=== PATIENT | female | born 1970 | race Two or more races ===

== ENCOUNTER → 2017-10-15 | Outpatient (CLI) | payer OTHER ==
[2017-10-15 07:21] LABS: microscopic required? NO
[2017-10-15 07:32] LABS: BASOPHIL % 0.3 % (0-2); PLATELET COUNT 141 x10^3mcL (130-400); RED CELL DISTRIBUTION WIDTH 13.5 % (11.5-14.5)
[2017-10-15 07:48] LABS: ALBUMIN 3.8 g/dL (3.4-5.0); ALKALINE PHOSPHATASE 68 U/L (46-116); ALT/SGPT 36 U/L (14-59); AST/SGOT 21 U/L (15-37); BILIRUBIN DIRECT 0.17 mg/dL (0.0-0.2); CALCIUM 8.8 mg/dL (8.5-10.1); CHLORIDE SERUM 104 mmol/L (98-107); CREATININE SERUM 0.7 mg/dL (0.6-1.0); FREE T4 1.19 ng/dL (0.76-1.46); GFR1 > 60 mL/min; GLUCOSE SERUM 82 mg/dL (74-106); HDL CHOLESTEROL 44 mg/dL (40-60); POTASSIUM SERUM 3.7 mmol/L (3.5-5.1); SODIUM SERUM 141 mmol/L (136-145); TOTAL PROTEIN, SERUM 7.5 g/dL (6.4-8.2); TRIGLYCERIDES 82 mg/dL (<150)
[2017-10-15 07:49] LABS: CHOLESTEROL 118 mg/dL (<200); CHOLESTEROL/HDL RATIO 2.7
[2017-10-15 09:12] LABS: UA SPECIFIC GRAVITY 1.015 (1.005-1.035); urine erythrocyte NEGATIVE (NEGATIVE)
== END | disposition home or self-care (01) ==
LOC: US 07:01 → LB 07:01
PROVIDERS: Internal Medicine
PROC: BW40ZZZ Ultrasonography of Abdomen (ICD-10-PCS; principal; 2017-10-15)
DX: Z00.00 Encounter for general adult medical examination without abnormal findings (principal); R10.11 Right upper quadrant pain
CPT/HCPCS: 84439

== ENCOUNTER → 2017-11-03 | Outpatient (CLI) | payer OTHER | END | disposition home or self-care (01) | LOC: CT 17:40 | PROC: BW20ZZZ Computerized Tomography (CT Scan) of Abdomen (ICD-10-PCS; principal; 2017-11-03) | DX: R10.9 Unspecified abdominal pain (principal); R16.0 Hepatomegaly, not elsewhere classified ==

== ENCOUNTER → 2017-12-12 | Outpatient (CLI) | payer OTHER | END | disposition home or self-care (01) | LOC: LB 15:14 | DX: R16.0 Hepatomegaly, not elsewhere classified (principal) ==

== ENCOUNTER → 2018-03-07 | Outpatient (CLI) | payer OTHER ==
[2018-03-07 15:20] LABS: BASOPHIL % 0.3 % (0-2); PLATELET COUNT 142 x10^3mcL (130-400)
[2018-03-07 15:33] LABS: ALBUMIN 3.7 g/dL (3.4-5.0); ALKALINE PHOSPHATASE 65 U/L (46-116); ALT/SGPT 31 U/L (14-59); AST/SGOT 20 U/L (15-37); BILIRUBIN TOTAL 0.4 mg/dL (0.20-1.00); CALCIUM 8.7 mg/dL (8.5-10.1); CARBON DIOXIDE 27.5 mmol/L (21-32); CHLORIDE SERUM 107 mmol/L (98-107); CREATININE SERUM 0.6 mg/dL (0.6-1.0); GFR1 > 60 mL/min; GLUCOSE SERUM 98 mg/dL (74-106); POTASSIUM SERUM 3.8 mmol/L (3.5-5.1); SODIUM SERUM 141 mmol/L (136-145); TOTAL PROTEIN, SERUM 7.3 g/dL (6.4-8.2)
[2018-03-10 14:29] LABS: VON WILLEBRAND FACTOR (vWG) AG 97 % (50-200)
== END | disposition home or self-care (01) ==
LOC: LB 14:37
PROVIDERS: Internal Medicine
DX: D68.0 Von Willebrand disease (principal)
CPT/HCPCS: 85246

== ENCOUNTER → 2018-05-26 | Outpatient (CLI) | payer OTHER ==
[2018-05-26 16:16] LABS: ALBUMIN 4.3 g/dL (3.4-5.0); ALKALINE PHOSPHATASE 75 U/L (46-116); ALT/SGPT 55 U/L (14-59); AST/SGOT 33 U/L (15-37); BILIRUBIN TOTAL 0.52 mg/dL (0.20-1.00); CALCIUM 8.9 mg/dL (8.5-10.1); CARBON DIOXIDE 31.3 mmol/L (21-32); CHLORIDE SERUM 103 mmol/L (98-107); CHOLESTEROL 167 mg/dL (<200); CHOLESTEROL/HDL RATIO 3.2; CREATININE SERUM 0.6 mg/dL (0.6-1.0); GFR1 > 60 mL/min; GLUCOSE SERUM 89 mg/dL (74-106); HDL CHOLESTEROL 52 mg/dL (40-60); POTASSIUM SERUM 3.9 mmol/L (3.5-5.1); SODIUM SERUM 140 mmol/L (136-145); TOTAL PROTEIN, SERUM 8.5 g/dL (6.4-8.2); TRIGLYCERIDES 112 mg/dL (<150)
[2018-05-26 16:19] LABS: UA SPECIFIC GRAVITY <=1.005 (1.005-1.035); microscopic required? YES; urine erythrocyte NEGATIVE (NEGATIVE)
== END | disposition home or self-care (01) ==
LOC: LB 15:25
PROVIDERS: Internal Medicine
DX: Z00.00 Encounter for general adult medical examination without abnormal findings (principal)

== ENCOUNTER → 2018-06-03 | Outpatient (CLI) | payer OTHER | END | disposition home or self-care (01) | LOC: MA 06-01 15:00 → US 06-01 16:00 | PROC: BH02ZZZ Plain Radiography of Bilateral Breasts (ICD-10-PCS; principal; 2018-06-03) | PROC: BW40ZZZ Ultrasonography of Abdomen (ICD-10-PCS; 2018-06-03) | DX: M76.62 Achilles tendinitis, left leg (principal); R10.9 Unspecified abdominal pain; Z12.31 Encounter for screening mammogram for malignant neoplasm of breast | CPT/HCPCS: 77067 ==

== ENCOUNTER → 2018-06-28 | Outpatient (CLI) | payer OTHER | END | disposition home or self-care (01) | LOC: LB 14:07 | DX: D68.0 Von Willebrand disease (principal) | CPT/HCPCS: 85246 ==

== ENCOUNTER → 2018-09-05 | Outpatient (CLI) | payer OTHER ==
[2018-09-05 09:30] LABS: BASOPHIL % 0.4 % (0-2); PLATELET COUNT 142 x10^3mcL (130-400); RED CELL DISTRIBUTION WIDTH 12.9 % (11.5-14.5)
[2018-09-05 09:57] LABS: ALBUMIN 3.8 g/dL (3.4-5.0); ALKALINE PHOSPHATASE 74 U/L (46-116); ALT/SGPT 36 U/L (14-59); AST/SGOT 18 U/L (15-37); BILIRUBIN TOTAL 0.7 mg/dL (0.20-1.00); C REACTIVE PROTEIN 0.3 mg/dL (<=0.9); CALCIUM 9.1 mg/dL (8.5-10.1); CARBON DIOXIDE 28.3 mmol/L (21-32); CHLORIDE SERUM 106 mmol/L (98-107); CREATININE SERUM 0.6 mg/dL (0.6-1.0); GFR1 > 60 mL/min; GLUCOSE SERUM 79 mg/dL (74-106); MAGNESIUM 1.9 mg/dL (1.8-2.4); POTASSIUM SERUM 4.3 mmol/L (3.5-5.1); SODIUM SERUM 141 mmol/L (136-145); TOTAL PROTEIN, SERUM 7.7 g/dL (6.4-8.2)
[2018-09-05 10:31] LABS: ERYTHROCYTE SED RATE 13 mm/hr (0-20)
[2018-09-06 09:19] LABS: RHEUMATOID ARTHRITIS FACTOR <10.0 IU/mL (0.0-13.9)
== END | disposition home or self-care (01) ==
LOC: LB 08:23
DX: D68.0 Von Willebrand disease (principal); M06.9 Rheumatoid arthritis, unspecified; M79.7 Fibromyalgia
CPT/HCPCS: 82784; 83516; 86200; 86255; 86431

== ENCOUNTER → 2018-10-23 | Outpatient (CLI) | payer OTHER ==
[2018-10-23 17:06] LABS: C REACTIVE PROTEIN 0.3 mg/dL (<=0.9); CALCIUM 8.6 mg/dL (8.5-10.1); FREE T4 1.01 ng/dL (0.76-1.46)
== END | disposition home or self-care (01) ==
LOC: RD 16:14
PROVIDERS: Family Medicine
DX: G95.9 Disease of spinal cord, unspecified (principal); R41.3 Other amnesia
CPT/HCPCS: 84425; 84439

== ENCOUNTER → 2019-04-17 | Outpatient (CLI) | payer OTHER ==
[2019-04-17 09:44] LABS: BASOPHIL % 0.3 % (0-2); PLATELET COUNT 143 x10^3mcL (130-400); RED CELL DISTRIBUTION WIDTH 12.8 % (11.5-14.5)
[2019-04-17 09:57] LABS: ALBUMIN 3.7 g/dL (3.4-5.0); ALKALINE PHOSPHATASE 77 U/L (46-116); ALT/SGPT 29 U/L (14-59); AST/SGOT 16 U/L (15-37); BILIRUBIN DIRECT 0.16 mg/dL (0.0-0.2); CALCIUM 8.7 mg/dL (8.5-10.1); CARBON DIOXIDE 28.9 mmol/L (21-32); CHLORIDE SERUM 108 mmol/L (98-107); CHOLESTEROL 160 mg/dL (<200); CREATININE SERUM 0.6 mg/dL (0.6-1.0); FREE T4 1.15 ng/dL (0.76-1.46); GFR1 > 60 mL/min; GLUCOSE SERUM 86 mg/dL (74-106); HDL CHOLESTEROL 53 mg/dL (40-60); POTASSIUM SERUM 4.3 mmol/L (3.5-5.1); SODIUM SERUM 143 mmol/L (136-145); TOTAL PROTEIN, SERUM 7.6 g/dL (6.4-8.2); TRIGLYCERIDES 104 mg/dL (<150)
== END | disposition home or self-care (01) ==
LOC: LB 08:42
PROVIDERS: Internal Medicine
DX: Z00.00 Encounter for general adult medical examination without abnormal findings (principal)
CPT/HCPCS: 84439

== ENCOUNTER 2019-10-26 17:21 | Emergency (ER) | payer OTHER, SELFPAY ==
[~2019-10-26] VITALS: Ht 157.5 cm; Wt 72.1 kg
[2019-10-26 17:50] VITALS: Ht 157.5 cm; Wt 72.1 kg
[2019-10-26 18:46] LABS: BASOPHIL % 0.3 % (0-2); PLATELET COUNT 143 x10^3mcL (130-400); RED CELL DISTRIBUTION WIDTH 12.9 % (11.5-14.5)
[2019-10-26 18:48] LABS: CALCIUM 8.8 mg/dL (8.5-10.1); CARBON DIOXIDE 27.1 mmol/L (21-32); CHLORIDE SERUM 103 mmol/L (98-107); CREATININE SERUM 0.6 mg/dL (0.6-1.0); GFR1 > 60 mL/min; GLUCOSE SERUM 83 mg/dL (74-106); POTASSIUM SERUM 3.6 mmol/L (3.5-5.1); SODIUM SERUM 140 mmol/L (136-145)
[2019-10-26 18:52] LABS: ALBUMIN 3.8 g/dL (3.4-5.0); ALKALINE PHOSPHATASE 68 U/L (46-116); ALT/SGPT 30 U/L (14-59); AST/SGOT 21 U/L (15-37); BILIRUBIN TOTAL 0.5 mg/dL (0.20-1.00); TOTAL PROTEIN, SERUM 7.4 g/dL (6.4-8.2)
[2019-10-26 20:23] LABS: microscopic required? NO
[2019-10-26 20:39] LABS: urine erythrocyte NEGATIVE (NEGATIVE)
[2019-10-26 21:11] LABS: FREE T4 0.99 ng/dL (0.76-1.46); FREE THYROXINE INDEX 2.6 ug/dL (1.4-4.5); T4(THYROXINE) 7.5 ug/dL (4.7-13.3)
[2019-10-26 21:36] VITALS: BP 117/63
[2019-10-26 22:35] LABS: T3 TOTAL 0.97 ng/mL
== END 2019-10-26 21:36 | disposition home or self-care (01) ==
LOC: ED 17:21
PROVIDERS: Emergency Medicine
DX: B34.9 Viral infection, unspecified (principal); R07.89 Other chest pain; E03.9 Hypothyroidism, unspecified; Z88.6 Allergy status to analgesic agent
CPT/HCPCS: 84439; J7030

== ENCOUNTER → 2019-12-25 | Outpatient (CLI) | payer OTHER ==
[2019-12-25 09:23] LABS: ALKALINE PHOSPHATASE 81 U/L (46-116); ALT/SGPT 28 U/L (14-59); AST/SGOT 14 U/L (15-37); BILIRUBIN TOTAL 0.71 mg/dL (0.20-1.00); CALCIUM 8.6 mg/dL (8.5-10.1); CARBON DIOXIDE 26.5 mmol/L (21-32); CHLORIDE SERUM 104 mmol/L (98-107); CREATININE SERUM 0.7 mg/dL (0.6-1.0); GFR1 > 60 mL/min; GLUCOSE SERUM 89 mg/dL (74-106); SODIUM SERUM 139 mmol/L (136-145); TOTAL PROTEIN, SERUM 7.9 g/dL (6.4-8.2)
[2019-12-25 09:42] LABS: BASOPHIL % 0.3 % (0-2); PLATELET COUNT 155 x10^3mcL (130-400); RED CELL DISTRIBUTION WIDTH 13.1 % (11.5-14.5)
[2019-12-25 11:46] LABS: ERYTHROCYTE SED RATE 10 mm/hr (0-20)
== END | disposition home or self-care (01) ==
LOC: LB 08:09
PROVIDERS: ATTEND Internal Medicine
DX: M79.7 Fibromyalgia (principal); E03.9 Hypothyroidism, unspecified; M17.10 Unilateral primary osteoarthritis, unspecified knee
CPT/HCPCS: 85240; 85246; 85613

== ENCOUNTER → 2020-04-17 | Outpatient (CLI) | payer OTHER ==
[2020-04-17 12:23] LABS: BASOPHIL % 0.4 % (0-2); PLATELET COUNT 180 x10^3mcL (130-400); RED CELL DISTRIBUTION WIDTH 12.8 % (11.5-14.5)
== END | disposition home or self-care (01) ==
LOC: LB 11:20
DX: D68.0 Von Willebrand disease (principal)

== ENCOUNTER → 2020-05-05 | Outpatient (CLI) | payer OTHER | END | disposition home or self-care (01) | LOC: CA 11:13 → LB 11:13 | PROVIDERS: ATTEND Internal Medicine Cardiovascular Disease | DX: D68.0 Von Willebrand disease (principal) | CPT/HCPCS: 85240 ==

== ENCOUNTER → 2020-09-16 | Outpatient (CLI) | payer OTHER ==
[2020-09-16 13:09] LABS: BASOPHIL % 0.3 % (0.2-1.3); PLATELET COUNT 153 x10^3mcL (179-408); RED CELL DISTRIBUTION WIDTH 13.1 % (12.3-17.7)
[2020-09-16 13:21] LABS: ALBUMIN 3.5 g/dL (3.4-5.0); ALKALINE PHOSPHATASE 92 U/L (46-116); ALT/SGPT 35 U/L (14-59); AST/SGOT 21 U/L (15-37); BILIRUBIN TOTAL 0.6 mg/dL (0.20-1.00); C REACTIVE PROTEIN 0.3 mg/dL (<=0.9); CALCIUM 8.6 mg/dL (8.5-10.1); CARBON DIOXIDE 27.2 mmol/L (21-32); CHLORIDE SERUM 106 mmol/L (98-107); CREATININE SERUM 0.6 mg/dL (0.6-1.0); GFR1 > 60 mL/min; GLUCOSE SERUM 95 mg/dL (74-106); POTASSIUM SERUM 3.8 mmol/L (3.5-5.1); SODIUM SERUM 141 mmol/L (136-145); TOTAL PROTEIN, SERUM 7.4 g/dL (6.4-8.2)
[2020-09-16 14:59] LABS: ERYTHROCYTE SED RATE 23 mm/hr (0-20)
== END | disposition home or self-care (01) ==
LOC: LB 12:18
DX: M81.8 Other osteoporosis without current pathological fracture (principal)